=== PATIENT | female | born 1945 | race Caucasian/White ===

== ENCOUNTER 2022-05-16 11:32 | Day surgery (SDC) | payer MEDICARE, OTHER, SELFPAY ==
[2022-05-12 09:59] VITALS: BMI 32.9
[2022-05-16] VITALS (16 sets, daily range): BP systolic 88–145; BP diastolic 34–77; PULSE 65–97; RESP 14–20; TEMP 35.4–37.2; O2SAT 94–98; BMI 32.9
--- NOTE | 2022-05-16 10:08 | DI.RAD.S_ITS ---
PROCEDURE: XR PELVIS 1-2V INDICATIONS: CRYSTAL TECHNIQUE: 1 view of the lower pelvis acquired. COMPARISON: [facility] [place], [place], XR PELVIS WITH LATERAL HIP RIGHT, 05/11/2022, 9:45. FINDINGS: Bones: Patient is status post right hip arthroplasty, with hardware components in expected positions. The hip joint appears congruent. The visualized bony structures appear intact. Soft tissues: Overlying postoperative changes are noted. No suspicious soft tissue densities. IMPRESSION: Expected alignment status post placement of right hip arthroplasty. Dictated by: Denton PULLIAM Interpreted: Mee Michaud MD on 05/16/2022 at 16:37 Transcribed by: LAURI on 05/16/2022 at 16:37 Approved by: Mee Michaud M.D. on 06/01/2022 at 8:34
[2022-05-16 12:23] LABS: COVID19 -Nasal RAPID Negative (Negative)
[2022-05-16] MEDS: LACTATED RINGERS 1,000 ML 42 ML IV ×2 (12:41→16:28)
[2022-05-16] MEDS: VANCOMYCIN 1,000 MG/200 ML PIGGYBACK 200 MG IV (13:10)
[2022-05-16] MEDS: CELECOXIB 200 MG CAPSULE PO (13:23)
[2022-05-16] MEDS: ACETAMINOPHEN 325 MG TABLET 975 MG PO (13:39)
--- NOTE | 2022-05-16 13:40 | SUR.PREOP ---
Spoke with lelo Chaudhry to give tylenol
--- NOTE | 2022-05-16 13:48 | PM.PREOP ---
Pre-operative Note COVID-19 COVID-19 status: Negative Interval Note History & Physical reviewed/Exam performed by Physician: Yes Changes to H&P: No
--- NOTE | 2022-05-16 14:16 | PM.PREOP ---
Pre-operative Note COVID-19 COVID-19 status: Negative Interval Note History & Physical reviewed/Exam performed by Physician: Yes Changes to H&P: No
--- NOTE | 2022-05-16 14:17 | P.OP_ITS ---
Operative Date/Time/Diagnoses Date of procedure: 05/16/22 Time of procedure: 15:00 Pre-op diagnosis: Right hip AVN Post-op diagnosis: same Procedure & Clinicians Procedure: Right total hip arthroplasty posterior approach Same procedure as scheduled: Yes Indications: The patient has had progressively worsening right hip pain with radiographic changes consistent with arthritis. Non-operative management has failed and the patient has requested total hip replacement. The risks, benefits and alternatives to surgery were discussed with the patient prior to proceeding. Risks discussed included, but were not limited to, failure to relieve pain, leg length discrepancy, dislocation, stiffness, infection, nerve damage, deep venous thrombosis, pulmonary embolism, stroke, coma, heart attack, permanent paralysis and , as well as the potential need for eventual revision of the prosthetic. 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 The patient received pre-operative antibiotics and was taken to the operating room and placed on the operative table in the left lateral decubitus position after satisfactory anesthesia. A full time staff interpreter out was performed. The right leg was prepared from the ankle to the iliac crest with ChloroPrep in the usual fashion and draped through sterile drapes. The hip was approached through an approximately 20 cm incision centered over the greater trochanter and curving gently posteriorly as it went proximally. This was carried sharply to the fascia mark, which was divided and retracted with a self retaining retractor. The trochanteric bursa was excised with care being taken to avoid the sciatic nerve, which was identified and protected throughout the case. The short external rotators were incised and the capsulomuscular flap was raised and tagged for later repair. The hip was dislocated, and a femoral neck osteotomy performed approximately 15 mm above the lesser trochanter. Retractors were placed around the femur. The canal was opened with a box cuttin g osteotome, followed by a T handled reamer and a lateralizing reamer. The chili pepper broach was then used, followed by reaming with the T-handle and sequential broaching until there was good stability of the broach in the femur. Retractors were placed to expose the acetabulum. The labrum and central soft tissues were removed. There was severe synovitis. There was severe fragmentation of the femoral head. A fairly extensive synovectomy was performed. Reaming was performed initially going up in 2 mm increments, then 1 mm increments until good bite was obtained with an odd sized reamer. The cup 1 mm larger than the last reamer was then inserted using the appropriate anteversion guides. It was further stabilized with a single screw. A trial neutral liner was placed. The broach was placed in the canal. A trial head and neck were then placed and the hip relocated and checked for leg length and stability. An intraoperative film confirmed the component position and no evidence of fracture. The patient was stable in the position of sleep, of squatting, and could be put through a range of motion with 45 degrees internal rotation without dislocation. At 90 degrees flexion, internal rotation to 80 was possible before dislocation. This was felt to be satisfactory and the appropriate components were opened, and the trials were removed. The acetabular liner was impacted into position. The final stem was then impacted into the prepared femoral canal. A brief Betadine soak was performed while trialing with head options. The hip was meticulously irrigated with normal saline. Finally the femoral head was impacted onto the stem. The acetabulum was cleared of all material and the hip relocated one final time. The capsulomuscular flap was then repaired to the greater trochanter though an awl hole using the tag sutures. The short external rotators were repaired with a nonabsorbable suture. The fascia mark was closed with Vicryl. The subcutaneous layer was closed with barbed sutures and SteriStrips. A aramis dressing was applied and the patient was taken to recovery having tolerated the procedure well. Complications: none Post-operative Condition: stable Disposition: Acute Care Plan for aftercare: The patient will be maintained on a standard total hip replacement protocol with weight bearing as tolerated and posterior hip precautions. The patient will receive Aspirin and sequential compression devices for DVT prophylaxis. The patient will be discharged home when safe for the home environment.
[2022-05-16] MEDS: CLINDAMYCIN 900 MG/50 ML PIGGYBACK 50 MG IV (14:35)
[2022-05-16] MEDS: TRANEXAMIC ACID 1,000 MG VIAL 2000 MG INJ ×2 (14:42→15:10)
[2022-05-16] MEDS: BUPIVACAINE 0.25% (PF) 60 ML, EPINEPHrine 0.3 MG INJ (15:10)
[2022-05-16] MEDS: SODIUM CHLORIDE IRRIG SOLUTION 250 ML, POVIDONE-IODINE SPONGE STICKS 1 APPLIC IRR (15:11)
--- NOTE | 2022-05-16 15:15 | SUR.OPER ---
Lateral on padded OR bed. Gel axillary roll. Arms secured on padded armboard with pillow supporting top arm. Gel pad placed under left arm. Padded hip positioner braces x4 - anterior and posterior chest and pelvis. Additional gel pad used anterior pelvis. Gel pad under bottom leg from knee to foot and secured with tape over sheet.
--- NOTE | 2022-05-16 15:16 | SUR.OPER ---
Addendum entered by Lorena Funk R.N. 05/16/22 15:24: Catheterization with this RN as stated below performed at 1405 prior to entering OR. Addendum entered by Lorena Funk R.N. 05/16/22 15:19: Patients glasses brought to OR and placed in patient labelled glass bag and taken with patient to PACU. Original Note: Patient requested assistance in self catheterizing. patient states she does this every 10-15 minutes at home. Used 14F silicone catheter pre patient request. Urethra opening cleansed with sterile Providone-Iodine solution with sterile technique. Catheter inserted and 200mls of clear yellow urine removed. Patient states she has been performing self-catheterization for 10 years.
[2022-05-16] MEDS: BUPIVACAINE LIPOSOME 266 MG/20 ML VIAL INJ (16:00)
--- NOTE | 2022-05-16 17:00 | DI.RAD.S_ITS ---
PROCEDURE: XR HIP W PEL IF DONE RT 2V INDICATIONS: RIGHT TOTAL HIP POST OP TECHNIQUE: AP pelvis and lateral view of the right hip acquired. COMPARISON: [facility], [place], XR PELVIS 1-2V, 05/16/2022, 15:37. FINDINGS: Bones: Patient is status post right hip arthroplasty, with hardware components in expected positions. The hip joint appears congruent. The visualized bony structures appear intact. Note is made of moderate to severe left hip joint degeneration. Severe degenerative disc disease in lower lumbar spine. Soft tissues: Overlying postoperative changes are noted. No suspicious soft tissue densities. IMPRESSION: Expected postsurgical changes after total hip arthroplasty. Dictated by: Lencho Lomas M.D. on 05/17/2022 at 17:52 Approved by: Lencho Lomas M.D. on 05/17/2022 at 17:53
[2022-05-16] MEDS: OXYCODONE IR 5 MG TABLET PO ×2 (17:26→21:58)
--- NOTE | 2022-05-16 17:51 | SUR.PHASEI ---
1730: Pt A&Ox4, reports pain as tolerable, dressing c/d/i, CMS (+) distal to surgical site. Report given to receiving RN using SBAR with time allowed for questions. Pt transferred to room 208 with all personal belongings. Bedside handoff with dressing check and right foot movement with receiving RN. Son was in pt room during handoff.
[2022-05-16] MEDS: LACTATED RINGERS 1,000 ML 125 ML IV (18:15)
[2022-05-16] MEDS: BUSPIRONE 5 MG TABLET 15 MG PO (20:58)
[2022-05-16] MEDS: IBUPROFEN 400 MG TABLET PO (20:58)
[2022-05-16] MEDS: DOCUSATE 100 MG CAPSULE PO (20:59)
[2022-05-16] MEDS: ASPIRIN EC 81 MG TABLET PO (20:59)
[2022-05-16] MEDS: PRAMIPEXOLE 1 MG TABLET PO (20:59)
[2022-05-17] VITALS (8 sets, daily range): BP systolic 106–151; BP diastolic 45–66; PULSE 65–97; RESP 17–18; TEMP 35.9–37.1; O2SAT 94–99
[2022-05-17] MEDS: IBUPROFEN 400 MG TABLET PO ×2 (01:16→05:18)
[2022-05-17] MEDS: VANCOMYCIN 1,000 MG/200 ML PIGGYBACK 200 MG IV (01:16)
--- NOTE | 2022-05-17 04:55 | PC.NURSE ---
pt complained of muscle spasms, called gas distribution supervisor Dr Kothari. Received telephone order for 5mg Valium PO, q 6 hours. Will continue to monitor.
[2022-05-17] MEDS: OXYCODONE IR 10 MG TABLET PO (05:17)
[2022-05-17] MEDS: LEVOTHYROXINE 100 MCG TABLET PO (05:45)
--- NOTE | 2022-05-17 06:28 | PC.NURSE ---
Received order for Valium from Dr Kothari, [facility] will not verify because of hx of liver ds. [facility] will inform day pharmacy.
[2022-05-17 06:43] LABS: Hematocrit 32.4 % (36-46); Hemoglobin 10.8 g/dL (12.0-16.0)
[2022-05-17] MEDS: DOCUSATE 100 MG CAPSULE PO ×3 (08:05→20:12)
[2022-05-17] MEDS: ASPIRIN EC 81 MG TABLET PO (08:05)
[2022-05-17] MEDS: PRAMIPEXOLE 1 MG TABLET PO ×2 (08:05→20:12)
[2022-05-17] MEDS: OXYCODONE IR 5 MG TABLET PO ×3 (08:05→18:06)
[2022-05-17] MEDS: BUSPIRONE 5 MG TABLET 15 MG PO ×2 (08:05→20:13)
[2022-05-17] MEDS: PRAVASTATIN 20 MG TABLET 40 MG PO (08:12)
[2022-05-17] MEDS: FLUTICASONE 120 SPRAY/16 GM SPRAY.SUSP NASAL (08:12)
[2022-05-17] MEDS: PANTOPRAZOLE DR 40 MG TABLET PO (08:13)
[2022-05-17] MEDS: atenoloL 50 MG TABLET 100 MG PO (08:13)
[2022-05-17] MEDS: polyethylene glycoL 3350 17 GM POWD.PACK PO (08:59)
--- NOTE | 2022-05-17 09:19 | CM.DANOTE ---
Addendum entered by Aliza Guerrero R.N. 05/17/22 13:26: [facility] is listed on calendar for this week. Called Juliane at [facility] and confirmed that they do go to [place], and can have someone possibly out there by Sunday. Emailed change group for appropriate address, as the face sheet had incorrect number on address. Gave patient a brochure for [facility], son, Lester, in the room. Faxed [facility] face sheet, face to face, orders, DC Summary, P.T. notes, and H&P to [facility]. Patient will be working with P.T. again today before going home, and son will have caregiver training. Original Note: DCP: Case received, EMR reviewed and worked with patient. Introduced self and role. Was able to obtain information regarding patient's baseline activity status as well as current living situation prior to her surgery. DCP assessment completed with information currently available. Patient is a 76 year old female who admitted yesterday morning to the care of the hospitalist team. PCP: Provider in [place]. Payer: confirmed: Medicare/[employer] Preferred. Patient came to the hospital via private vehicle for a surgical procedure. Patient had right total hip arthroplasty. Patient has history of chronic right hip pain secondary to arthritis. Met with patient in her room. She is alert and oriented, pleasant. She resides in [place], [place] [facility]. She lives alone, but has a son named Lester, who lives about 11 miles away. Her son has been fixing up her home to be handicapped friendly, has a ramp where the stairs are to get into the home. She has an electric scooter, and four wheel, and FWW walker available. She is not currently driving. She is interested in home health, she has no preferences on agencies, just one that serves her area. P: DCP to continue to follow. Will check with the home health agencies to see which ones serve her area. Aliza Guerrero RN/Dispatcher Motor Vehicle Discharge Planning/Care Management CM Discharge Assessment Start: 05/17/22 09:16 Freq: Status: Active Protocol: Document 05/17/22 09:16 (Rec: 05/17/22 09:19 [id number]) Discharge Planning Assessment Assigned Frame Stylist Aliza Guerrero RN/Dispatcher Motor Vehicle Advance Directives? No History Provided By Patient,Medical Record Prior Living Arrangements House Household Members none Type of transporation used prior to Relies on Others admit Independent with ADL's Yes Is patient alert and oriented? Yes Needs Assistance With Home Chores / Shopping Caregiver for Another No DME Already Rented / Owned FWW / Walker,Other Comment Has scooter and four wheel walker Patient/Family Preference Home with Home Health Comment Lives alone, son is 11 miles away Discharge Plan Home with Home Health Transportation Arrangement Son Referrals Initiated Home Health Additional Comment Will see which agency serves her area If patient plan is home with home health Yes: There are presigned forms : Has signed face to face form been by ortho completed? Medicare Choice List Provided Yes Whiteboard Updated in Patient Room with Yes name and ext. # of Frame Stylist Review Status In Process Next Review Type Continued Stay Review Pre-Anesthesia Assessment Start: 05/12/22 09:59 Freq: Status: Active Protocol: Document 05/12/22 09:59 [facility] (Rec: 05/12/22 10:54 [facility] [id number]) Pre-Anesthesia Assessment PAC Comment Pt self-caths - wants to have a curry catheter Preferred Name Rachel Patient Information Reviewed Via Phone Assessment Assessment Completed With Patient H&P Completed Within 30 Days Yes Comment Pt states not told to get labs /ECG per surgeon, COVID - Rapid on admit Primary Care Provider Jonas Seen Specialist in Last 12 Months Yes Specialist Seen Orthopedist,Urologist Primary Language Greek Drug Safety Specialist Required No Height 5 ft 2 in Weight 180 lb Body Mass Index (BMI) 32.9 Hearing Ability Normal Visual Assist Glasses Dentition Type Teeth, Natural Present Barriers to Learning None Hx Anesthesia Reactions No: DAE - no CPAP Hx Family Anesthesia Reaction No Hx Malignant Hyperthermia No Hx Blood Transfusions Yes: s/p hysterectomy Hx Blood Transfusion Reaction No Anesthesia Review Requested No alcohol intake current alcohol intake frequency a few times a week Smoking Status Never smoker Substance Use Type does not use Musculoskeletal Symptoms Abnormal Gait,Difficulty Walking,Joint Pain History of Falling (Recent or History of Yes ) Patient is completely paralyzed or No completely immobile Prosthesis or Orthotic Device Front Wheel Walker Mental Status Oriented to own ability Is patient on oxygen? No Does patient have SHER/SOB Yes: Related to Asthma Hx Sleep Apnea Yes CPAP/BIPAP use prescribed not used Currently Taking a Beta Rosalba Yes: Atenolol Hx Chest Pain No Hx SOB Yes: Related to Asthma Anti-Coagulant Therapy No Has a Benzene Still Utility Operator No Cardiac Testing No Hx Pacemaker/ICD No Pacemaker Rep Required? No Diet Type At Home Regular dysphagia Yes: Wth too big of a bite Gastrointestinal Symptoms Bloating,Constipation, Excessive Flatus,Reflux Urinary Catheter Present No Hx Urinary Self Catheterization Yes: Pt would like a curry with surgery Diabetes No: Pre-diabetes Patient No Lactating No Presence of External or Internal Medical Yes: Bilat knees/shoulders, Devices lumbar Have you had any close contact with No someone diagnosed with COVID-19? Received a COVID vaccine? No Marital Status / Lives With none Prior Living Arrangements House Number of Floors (Floors) One Floor Support System Child/Children Does the Patient Have Assistance After Yes: Son will stay with Surgery patient at [place] Patient Discharge Plan Description Return Home Comment Pt not advised on length of stay per surgeon Feels Safe in Current Environment Yes Been Physically Hurt or Threatened By a No Person in Current Environment Do you have thoughts of harming yourself None or others? Are you currently considering suicide? No Do you have a plan to hurt yourself or No Plan others? Do You Have Any Spiritual Beliefs That No May Affect Your HC Choices? Do You Have Any Cultural Practices That No May Affect Your HC Choices? Who Can We Speak to About Patient's Care Family, friends Identifying Code for Release of Patient Declines to issue Information Health Care Proxy/Next of Kin Lester (son) Health Care Proxy Phone Number Pt to update dos Emergency Contact Name Ezio (son) Emergency Contact Phone Number Pt to update dos Advance Directives? No Power of Manager [employer] No PAC Instructions Do not shave/clip surgical site,Durable medical equipment ,Medications to take/avoid, Nasal antibiotic,No ETOH/ petroleum product on skin DOS, NPO,Pre-surgical wash,Sturdy shoes/comfortable clothes,Do not bring valuables and remove jewelry
[2022-05-17] MEDS: hydrOXYzine pamoate 25 MG CAPSULE PO ×2 (09:35→20:10)
[2022-05-17] MEDS: APIXABAN 5 MG TABLET PO ×2 (09:35→20:12)
--- NOTE | 2022-05-17 09:37 | PT.IIE ---
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) Surgery Performed Operation Date: 05/16/22 13:45 Actual Procedures p Total Hip Arthroplasty(Right) - Marina Tinoco MD Surgical History (Last Reviewed 05/17/22 @ 11:36 by Brook Gold PA-C) History of arthroplasty of left knee History of arthroplasty of left shoulder History of arthroplasty of right knee History of arthroplasty of right shoulder History of hysterectomy History of lumbar fusion Hx of bilateral cataract extraction Hx of bladder repair surgery Hx of laminectomy Hx of partial thyroidectomy Hx of sinus surgery Medical History (Last Reviewed 05/17/22 @ 11:36 by Brook Gold PA-C) Anesthesia Asthma Dry skin DVT (deep venous thrombosis) (~2017) Easy bruisability Fatty liver Fibromyalgia GERD (gastroesophageal reflux disease) Graves' disease HLD (hyperlipidemia) HTN (hypertension) Idiopathic aseptic necrosis of right femur DAE (obstructive sleep apnea) Osteoarthritis Pre-diabetes RLS (restless legs syndrome) Self-catheterizes urinary bladder Small bowel obstruction (~2017) Physical Therapy Inpatient Evaluation/Re-Eval M1 PT/OT-IP Prior Functional Status Start: 05/17/22 12:34 Freq: NEEDED Status: Active Protocol: Document 05/17/22 09:37 AB (Rec: 05/17/22 12:49 AB [id number]) Medical Review Prior Functional Status Medical History Reviewed Yes Communication able to make needs known; with confusion Mobility and Gait pt stated that she is modified independent with all mobilities and ambulation using her UP walker Social History Household Members none Living Arrangements House Number of Floors (Floors) One Floor Number of Stairs To Enter/Railing? ramp to enter Home Environment High Toilet,Walk in Shower, Ramp Home Equipment Front Wheel Walker,Four Wheel Walker,Shower Seat with Backrest,Hand Held Shower,Grab Bars In Shower Additional Social History Comment stated that her son may stay with her to assist if needed pt has an UP walker pt has R side bed cane M2 PT-IP Current Condition Start: 05/17/22 12:34 Freq: NEEDED Status: Active Protocol: Document 05/17/22 09:37 AB (Rec: 05/17/22 12:49 AB [id number]) Physical Therapy Current Condition Current Condition Evaluation Date 05/17/22 Treatment Diagnosis s/p R CRYSTAL posterior approach; difficulty in walking Onset Date 05/16/22 M3 PT-IP Subjective Start: 05/17/22 12:34 Freq: NEEDED Status: Active Protocol: Document 05/17/22 09:37 AB (Rec: 05/17/22 12:49 AB [id number]) Subjective Physical Therapy Visit Type Type Initial Evaluation Visit Start Time 09:37 Visit Stop Time 10:45 Total Visit Minutes 68 Number of SENIOR QC TECHNICIAN Visits 0 Physical Therapy Visit Comments Patient Comments agreed to do PT Therapy Pain Assessment Pain When Pain Assessed At Rest Pain Present Pain Present Pain Reported Location r hip pain Intensity 4 Scale Used Numeric (0 - 10) Pain Management Techniques Apply Cold,Distraction, Modification of Treatment,Re- positioning,Timing of Activity with Medications M4 PT-IP Mobility and Gait Start: 05/17/22 12:34 Freq: NEEDED Status: Active Protocol: Document 05/17/22 09:37 AB (Rec: 05/17/22 12:49 AB [id number]) PT-Bed Mobility Assessment Supine to Sit Supine to Sit Maximum Assistance,Bedrails PT-Transfer Assessment Sit to and From Stand Sit to and from Stand Moderate Assistance,Maximum Assistance Equipment Transfer Assistive Device Gait Belt,Front Wheeled Walker Orthotic/Prosthetic Devices or Brace: No Transfers Transfer Destination Chair Transfer Technique ambulated Transfer Ability Level of Assist Moderate Assistance,Maximum Assistance,1 Person Assistance ,Use of Upper Extremities Comments Mobility Comments educated pt on posterior hip precautions. pt requires constant cues for precautions and safety. completed supine to sit max A and max cues for techniques. able to sit on EOB CGA. completed sit to stand mod to max A and cues for hip precautions. ambulated in room ~ 50 ft using FWW min to mod A and cues especially with turns. pt agreed to sit on chair. positioned on chair. call light and table placed within reach. Gait Assessment Gait Gait Assistance Required: Minimum Assistance,Moderate Assistance Distance (Feet) 50 Able to Maintain Weight Bearing Status Yes During Gait Assistive Devices Assistive Device Gait Belt,Front Wheeled Walker Orthotic/Prosthetic Devices or Brace: No Gait Deviations General Gait Pattern Antalgic,Decreased Stride Length,Decreased Feet Clearance Factors Limiting Gait Function Factors Limiting Gait Function Decreased Activity Tolerance, Decreased Strength,Difficulty Following Directions,Limited Range of Motion,Pain,Poor Balance,Poor Safety Awareness PT-Balance Assessment Sitting Balance and Reactions Static Sitting Balance Ability Good Dynamic Sitting Balance Ability Fair Standing Balance and Reactions Static Standing Balance Ability Fair Dynamic Standing Balance Ability Poor Device Used FWW M5 PT-IP Objective Assessments Start: 05/17/22 12:34 Freq: NEEDED Status: Active Protocol: Document 05/17/22 09:37 AB (Rec: 05/17/22 12:49 AB [id number]) Orientation Orientation/Cognition Level of Alertness Alert Orientation Name,Place,Situation Language Function Ability No Deficits Noted Safety Awareness Decreased Safety Awareness Memory Description Short Term Impaired,Enzyme Chemist Impaired Gross Range of Motion Lower Extremity ROM Assessment Within Functional Limits Strength Lower Extremity Strength Assessment Right Impaired Hip 3+/5 Knee 4-/5 Coordination Assessment Gross Coordination Gross Coordination WNL Sensation Assessment Sensation Gross Sensation WNL Muscle Tone Muscle Tone WNL Yes M6 PT-IP Treatment Start: 05/17/22 12:34 Freq: NEEDED Status: Active Protocol: Document 05/17/22 09:37 AB (Rec: 05/17/22 12:49 AB [id number]) Physical Therapy Treatment Education Education Provided Precautions,Weight Bearing Status,Post-Op Packet,Safety M7 PT-IP Assessment and Plan Start: 05/17/22 12:34 Freq: NEEDED Status: Active Protocol: Document 05/17/22 09:37 AB (Rec: 05/17/22 12:49 AB [id number]) PT Summary Assessment and Plan Potential Rehabilitation Potential Fair Status of Condition at Evaluation Evolving Summary Impairments Pain,ROM,Strength,Balance, Coordination,Sensation,Tone, Cognition,Bed Mobility, Transfers,Gait,Activity Tolerance Assessment Summary pt requiring max A with bed mobility, mod to max for transfers using FWW. will conduct caregiver training this afternoon with pt's son and will assess safety to go home. pt at this time will need 24/7 assist at home for safety and will benefit from HHPT. will continue to assess progress. Goals Bed Mobility Goal Standby Assistance Transfer Goal Standby Assistance,Front Wheeled Walker Gait Goal Standby Assistance,Front Wheel Walker Gait Distance 200 Days to Meet Goals 10 Frequency of Treatment Frequency Of Treatment Twice a Day Treatment Plan Physical Therapy Treatment Plan Bed Mobility Training,Transfer Training,Gait Training, Therapeutic Exercise,Balance Retraining,Post Op Education, Discharge Planning,Hot or Cold Pack,Neuromuscular Re-ed, Coordination Retraining,Manual Therapy Precautions Posterior Hip Precautions No Hip Flexion > 90 degrees,No Hip Internal Rotation,No Hip Adduction Weight Bearing Status Weight Bearing Status Weight Bear as Tolerated Allowed Weight Bearing Amount (enter % RLE WBAT or #) (%) Recommendations To Nursing Amount of Assist Needed 1 Person Assist Discharge Recommendations PT Discharge Recommendations Home with 04/06 Assist Available,Home Health Transportation Needs at Discharge Private Vehicle,Wheelchair/ Cabulance
--- NOTE | 2022-05-17 11:34 | PM.DS.1 ---
History of Present Illness History of Present Illness Date Patient Seen: 05/17/22 Time Patient Seen: 11:34 Chief complaint: OPB Narrative: Patient's main complaint this morning is right-sided muscle spasms. Her pain is relatively well managed. She is on oxycodone 5 mg and ibuprofen. She does have a history of a DVT status post her total knee arthroplasty. She self catheterizes at home. She notes she has also not had a bowel movement for over week. She has a history of constipation she notes that do go lacks 2 tablets usually does the trick. Overall she is feeling better, she worked with Physical therapy this morning and her son is coming for her afternoon session. If she does well with PT, she would like to go home today. Discharge Providers Provider Discharge Date: 05/17/22 Consults: 05/16/22 10:08 Consult to Anesthesiology Routine Comment: Consulting Provider: Anesthesiologist Reason for consultation: Regional block for post operative pain control 05/16/22 12:40 Consult to Respiratory Therapy Evaluate & Treat Comment: Physician Instructions: Evaluate and treat 05/16/22 17:52 Consult to Discharge Planning Routine Comment: Consult to Physical Therapy Evaluate & Treat Comment: Physician Instructions: post op CRYSTAL protocol Consult to Respiratory Therapy Evaluate & Treat Comment: Physician Instructions: Evaluate and treat Discharge provider: Brook Gold PA-C Summary Hospital Course Discharge Diagnosis: -right hip AVN -history of a DVT status post prior TKA Hospital Course: Operative Date/Time/Diagnoses Date of procedure: 05/16/22 Time of procedure: 15:00 Procedure & Clinicians Procedure: Right total hip arthroplasty posterior approach Same procedure as scheduled: Yes Indications: The patient has had progressively worsening right hip pain with radiographic changes consistent with arthritis. Non-operative management has failed and the patient has requested total hip replacement. The risks, benefits and alternatives to surgery were discussed with the patient prior to proceeding. Risks discussed included, but were not limited to, failure to relieve pain, leg length discrepancy, dislocation, stiffness, infection, nerve damage, deep venous thrombosis, pulmonary embolism, stroke, coma, heart attack, permanent paralysis and , as well as the potential need for eventual revision of the prosthetic. Surgeon: Marina Tinoco Outside [employer] Sales: Robbie Hammonds Anesthesia Type: General Operative Notes Findings: Severe right hip avascular necrosis with severe destruction of the femoral head, soft bone Closure Type: primary Specimen(s): none sent Prosthetic devices, grafts, tissues, transplants, or devices: Tinoco and nephew size 10 synergy, 48 mm R3 cup, 32 x 48 neutral poly liner, 32 by -3 cobalt head,one 6.5 mm screw Estimated Blood Loss (mL): 250 Blood products transfused: none Status at Discharge Cognitive/behavioral status at discharge: at baseline, oriented Functional status at discharge: uses cane/walker Overall status at discharge: patient is progressing back to baseline Exam Vital Signs (past 8 hours): - 05/17/22 04:18 05/17/22 07:45 05/17/22 08:59 Temperature 97.5 F L 96.6 F L Pulse Rate 82 79 65 Respiratory Rate 17 17 18 Blood Pressure 138/66 138/62 Pulse Oximetry 98 95 97 Oxygen Delivery Method Nasal Cannula Oxygen Flow Rate 3 0 3 Fraction of Inspired Oxygen 32 05/17/22 07:00 05/17/22 07:00 Temperature Pulse Rate Respiratory Rate Blood Pressure Pulse Oximetry Oxygen Delivery Method Nasal Cannula Nasal Cannula Oxygen Flow Rate Fraction of Inspired Oxygen Fraction of Inspired Oxygen 32 Oxygen Delivery Method Nasal Cannula Oxygen Flow Rate 3 Narrative Exam Narrative: Pleasant 76-year-old female, resting comfortably in a chair, no acute distress. Dressing is clean, dry, intact. Bilateral lower extremity: Motor functions are grossly intact, sensation is grossly intact to light touch, calves are soft and nontender to palpation. Objective Labs Result Diagrams: 05/17/22 06:30 Labs: Laboratory Results - last 24 hr 05/16/22 05/17/22 11:50 06:30 Hgb 10.8 L Hct 32.4 L SARS-CoV-2 (PCR) Negative [facility] Medical History Anesthesia Asthma Dry skin DVT (deep venous thrombosis) (~2017) Easy bruisability Fatty liver Fibromyalgia GERD (gastroesophageal reflux disease) Graves' disease HLD (hyperlipidemia) HTN (hypertension) Idiopathic aseptic necrosis of right femur DAE (obstructive sleep apnea) Osteoarthritis Pre-diabetes RLS (restless legs syndrome) Self-catheterizes urinary bladder Small bowel obstruction (~2017) Surgical History History of arthroplasty of left knee History of arthroplasty of left shoulder History of arthroplasty of right knee History of arthroplasty of right shoulder History of hysterectomy History of lumbar fusion Hx of bilateral cataract extraction Hx of bladder repair surgery Hx of laminectomy Hx of partial thyroidectomy Hx of sinus surgery Social History household members: none Smoking Status: Never smoker alcohol intake: current Discharge Assessment & Plan Assessment and Plan Assessment: -stable status post right total hip arthroplasty, posterior approach -history of DVT -chronic constipation, no bowel movement x1 week Patient self catheterizes at home Plan of Treatment: -mobilize with PT. weight-bearing as tolerated with front wheel walker. Maintain posterior hip precautions x6 weeks -DVT prophylaxis: Stop aspirin b.i.d. and changed to Eliquis 5 mg b.i.d. due it to her history of DVT status post total knee -keep Booker catheter in until discharge, then the patient will self catheterize at home -continue multimodal pain management. Added Vistaril for muscle spasm/pain. We will discontinue ibuprofen and add meloxicam 7.5 mg with Pepcid AC while using Eliquis. -chronic constipation: increased MiraLax to t.i.d., will add ducolax as well. Patient will need to have a BM before d/c, since it has been a week since last BM. Also encouraged rectal suppository -dc home with home health -d/c home if she is cleared by physical therapy and has a bowel movement before d/c Discharge Plan Discharge Plan Patient Disposition: Home Discharge orders & Medications Discharge Orders: Discharge (Order); Ordered 05/17/22 Ordered By: Brook Gold Prescriptions: New Eliquis 5 mg Tablet 5 mg PO BID 42 Days Qty: 84 0RF Rx Instructions: Prevent blood clots famotidine [Pepcid AC] 20 mg Tablet 20 mg PO BEDTIME PRN (Reason: Protect stomach while using meloxicam) Qty: 14 0RF docusate sodium 100 mg Capsule 100 mg PO BID PRN (Reason: Constipation from narcotic pain med) Qty: 60 0RF hydroxyzine pamoate 25 mg Capsule 25 mg PO Q4HR PRN (Reason: muscle spasms/pain/nausea) Qty: 60 0RF meloxicam 7.5 mg Tablet 7.5 mg PO .With breakfast PRN (Reason: Pain/inflammation) 14 Days Qty: 14 0RF oxycodone 5 mg Tablet See Rx Instructions .ROUTE .COMPLEX PRN (Reason: Pain, Moderate (4-6)) Qty: 42 0RF Rx Instructions: Take 1-2 tablets by mouth every 4 hours as needed for moderate to severe postop pain polyethylene glycol 3350 17 gram Powder In Packet 17 g PO TID PRN (Reason: Constipation) Qty: 30 0RF Continued pramipexole 1 mg Tablet 1 mg PO BID pravastatin 40 mg Tablet 40 mg PO DAILY atenolol 100 mg Tablet 100 mg PO QAM levothyroxine 100 mcg Tablet 100 mcg PO DAILY pantoprazole 40 mg Tablet,Delayed Release (Dr/Ec) 40 mg PO DAILY docusate sodium [Doculax] 100 mg Capsule 100 mg PO BID albuterol sulfate 90 mcg/actuation Hfa Aerosol Inhaler 2 puff INHALATION Q4-6H PRN (Reason: Shortness Of Breath) fluticasone propionate 50 mcg/actuation Delta,Suspension 2 spray INTRANASAL DAILY Rx Instructions: administer into each nostril buspirone 15 mg Tablet 15 mg PO BID Myrbetriq 50 mg Tablet Extended Release 24 Hr 50 mg PO DAILY Label Comments: doesn't take consistently due to cost of drug, and pt doesn't think it works chlorthalidone 15 mg Tablet 15 mg PO BID Follow up/Referrals: Marina Tinoco MD [Physician] - (10-14 days for postoperative visit) Diet/Activity/Treatments Diet: Diet as Tolerated Other treatments: Dressing/Wound care: -Keep Molina dressing in place until postoperative follow-up office visit. The Molina battery/pump should last for 7 days. Once that stops, please cut off hose at base of dressing and cover with a bandaid/part of a dressing from Molina package. Monitor can be thrown away and recycle the batteries. Leave the remaining dressing in place. -Okay to shower. Keep wound out of direct water stream. No soaking or submerging until all the scabs fall off (approximately 6 weeks). -No lotions, ointments, or scar creams directly to the incision until the wound is healed (4-6 weeks), -Please call the office if dressing becomes wet, soiled, or saturated. Activities: -Maintain posterior hip precautions x6 weeks. -Weight-bearing as tolerated. Use front wheeled walker, and progress to cane when safe. -Continue with home exercises as directed by your physical therapist. -Elevate ?toes above the nose if you have significant swelling in your lower leg. (A wedge pillow is easiest.) -Ice your incision as needed for pain/inflammation/swelling. Protect your skin with a folded pillowcase. Follow-up: -Follow-up with your surgeon or PA in the office in 10-14 days after surgery. -Follow-up with your surgeon 6 weeks postoperatively. Call the office if you have chest pain, shortness of breath, significant swelling that will not resolve with elevating, fever over 101?, significantly worsening pain, or are concerned you might need to go to the Emergency Room. [facility] Orthopedics: [phone] Skin/Wound/Dressing Care Report to your healthcare provider any signs of infection, such as:: chills, fever, night sweats, unusual drainage and unusual redness Visit Report/Discharge Packet Instructions: DI for Hip Replacement Stand Alone Forms: Surgery Discharge Discharge Data Attending Provider: Marina Tinoco
[2022-05-17] MEDS: BISACODYL 10 MG SUPP PR (12:56)
--- NOTE | 2022-05-17 14:00 | PT.IPTN ---
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) Surgery Performed Operation Date: 05/16/22 13:45 Actual Procedures p Total Hip Arthroplasty(Right) - Marina Tinoco MD Physical Therapy Treatment Note M2 PT-IP Current Condition Start: 05/17/22 12:34 Freq: NEEDED Status: Active Protocol: Document 05/17/22 09:37 AB (Rec: 05/17/22 12:49 AB [email or web address]) Physical Therapy Current Condition Current Condition Evaluation Date 05/17/22 Treatment Diagnosis s/p R CRYSTAL posterior approach; difficulty in walking Onset Date 05/16/22 M3 PT-IP Subjective Start: 05/17/22 12:34 Freq: NEEDED Status: Active Protocol: Document 05/17/22 14:00 AB (Rec: 05/17/22 16:24 AB [email or web address]) Subjective Physical Therapy Visit Type Type Treatment Note Visit Start Time 14:00 Visit Stop Time 14:45 Total Visit Minutes 45 Number of SCADA OPERATOR Visits 0 Physical Therapy Visit Comments Patient Comments agreeable to do PT Therapy Pain Assessment Pain When Pain Assessed At Rest Pain Present Pain Present Pain Reported Location r hip pain Intensity 4 Scale Used Numeric (0 - 10) M4 PT-IP Mobility and Gait Start: 05/17/22 12:34 Freq: NEEDED Status: Active Protocol: Document 05/17/22 14:00 AB (Rec: 05/17/22 16:24 AB [email or web address]) PT-Bed Mobility Assessment Supine to Sit Supine to Sit Maximum Assistance,1 Person Assistance Sit to Supine Sit to Supine Standby Assistance,1 Person Assistance PT-Transfer Assessment Sit to and From Stand Sit to and from Stand Moderate Assistance,1 Person Assistance,Use of Upper Extremities Equipment Transfer Assistive Device Gait Belt,Front Wheeled Walker Orthotic/Prosthetic Devices or Brace: No Transfers Transfer Destination Bed Transfer Technique ambulated Transfer Ability Level of Assist Minimal Assistance,1 Person Assistance,Use of Upper Extremities Comments Mobility Comments pt sitting on chair. son in room with pt. reviewed hip precautions with pt and educated son on hip precautions. educated son on how to use safety belt and how to assist pt. son was able to put safety belt on pt assisted pt with sit to stand. repeated sit to stand x 2 reps and initially with PT providing cues but on 2nd attempt with son able to cue pt. son assisted pt with ambulation to the EOB ~ 12 ft using FWW min A and cues. pt sat on EOB. PT cued for hip precautions and son was not able to cue prior. educated pt and son regarding hip precautions and understood. pt completed sit to supine SBA and supine to sit max A with son assisting. pt requested to go back to bed. SBA for sit to supine. positioned pt in bed. call light and table placed within reach. caregiver training scheduled again for tomorrow at 9 am. Gait Assessment Gait Gait Assistance Required: Minimum Assistance,1 Person Assist Distance (Feet) 12 Able to Maintain Weight Bearing Status Yes During Gait Assistive Devices Assistive Device Gait Belt,Front Wheeled Walker Orthotic/Prosthetic Devices or Brace: No Gait Deviations General Gait Pattern Antalgic,Decreased Stride Length,Decreased Feet Clearance Factors Limiting Gait Function Factors Limiting Gait Function Decreased Activity Tolerance, Decreased Strength,Difficulty Following Directions,Limited Range of Motion,Pain,Poor Balance,Poor Safety Awareness M5 PT-IP Objective Assessments Start: 05/17/22 12:34 Freq: NEEDED Status: Active Protocol: Document 05/17/22 09:37 AB (Rec: 05/17/22 12:49 AB [email or web address]) Orientation Orientation/Cognition Level of Alertness Alert Orientation Name,Place,Situation Language Function Ability No Deficits Noted Safety Awareness Decreased Safety Awareness Memory Description Short Term Impaired,Assisted Impaired Gross Range of Motion Lower Extremity ROM Assessment Within Functional Limits Strength Lower Extremity Strength Assessment Right Impaired Hip 3+/5 Knee 4-/5 Coordination Assessment Gross Coordination Gross Coordination WNL Sensation Assessment Sensation Gross Sensation WNL Muscle Tone Muscle Tone WNL Yes M6 PT-IP Treatment Start: 05/17/22 12:34 Freq: NEEDED Status: Active Protocol: Document 05/17/22 14:00 AB (Rec: 05/17/22 16:24 AB [email or web address]) Physical Therapy Treatment Education Education Provided Safety M7 PT-IP Assessment and Plan Start: 05/17/22 12:34 Freq: NEEDED Status: Active Protocol: Document 05/17/22 14:00 AB (Rec: 05/17/22 16:24 AB [email or web address]) PT Summary Assessment and Plan Potential Rehabilitation Potential Fair Summary Impairments Pain,ROM,Strength,Balance, Coordination,Sensation,Tone, Cognition,Bed Mobility, Transfers,Gait,Activity Tolerance Assessment Summary caregiver training conducted and further training needed and set up for tomorrow at 9 am. Son stated that he can stay and assist pt at home. will continue to assess progress. Goals Bed Mobility Goal Standby Assistance Transfer Goal Standby Assistance,Front Wheeled Walker Gait Goal Standby Assistance,Front Wheel Walker Gait Distance 200 Days to Meet Goals 10 Frequency of Treatment Frequency Of Treatment Twice a Day Treatment Plan Physical Therapy Treatment Plan Bed Mobility Training,Transfer Training,Gait Training, Therapeutic Exercise,Balance Retraining,Post Op Education, Discharge Planning,Hot or Cold Pack,Neuromuscular Re-ed, Coordination Retraining,Manual Therapy Precautions Posterior Hip Precautions No Hip Flexion > 90 degrees,No Hip Internal Rotation,No Hip Adduction Weight Bearing Status Weight Bearing Status Weight Bear as Tolerated Allowed Weight Bearing Amount (enter % RLE WBAT or #) (%) Recommendations To Nursing Amount of Assist Needed 1 Person Assist Discharge Recommendations PT Discharge Recommendations Home with 04/06 Assist Available,Home Health Transportation Needs at Discharge Private Vehicle,Wheelchair/ Cabulance
[2022-05-17] MEDS: FLEETS ENEMA 1 EACH PR (14:18)
--- NOTE | 2022-05-17 18:34 | PC.NURSE ---
Pt is AxOx3-4, calm and cooperative. VSS, c/o pain on R knee and requested PRN Oxy 5mg x3 with good effect. Pt also c/o constipation and recieved PRN Miralax, Suppository and Fleet Enema. Pt was taken to commode/ bathroom many times. Pt has very small BM x1 and rest of them are mucus. Pt is eating well. pt needs 1 person assistance with FWW. Continue curry catheter and draining yellow color urine. Pt worked with PT and pt did not clear pt today so pt may go home tomorrow after PT with HH. Son will come and pick her up. No other changes. Continue monitor.
[2022-05-17] MEDS: FAMOTIDINE 20 MG TABLET PO (20:11)
[2022-05-17] MEDS: SODIUM CHLORIDE 0.9% FLUSH 10 ML IV (20:13)
[2022-05-17] MEDS: HYDROMORPHONE 2 MG TABLET PO (22:33)
--- NOTE | 2022-05-17 22:38 | PC.NURSE ---
Pt. reported last pain medication I took did not last that long & it only helped for a little bit. Medicated with 2 mg. of Dilaudid PO rated pain level really high @ 10/10. Rechecked her B/P 155/56 & HR 80, will monitor.
[2022-05-18] VITALS (8 sets, daily range): BP systolic 117–140; BP diastolic 45–54; PULSE 72–83; RESP 18; TEMP 36.2–37.3; O2SAT 92–95
[2022-05-18] MEDS: diazePAM 5 MG TABLET PO ×3 (01:09→21:06)
--- NOTE | 2022-05-18 01:15 | PC.NURSE ---
Denies VU, nausea,no hallucinations & tremors noted. States I just can't sleep & I'm very restless, offered some Valium & she readily accepted. 5 mg. PO administered. Also reported last pain medication helped. Will cont. POC & monitor.
[2022-05-18] MEDS: HYDROMORPHONE 2 MG TABLET PO (03:51)
--- NOTE | 2022-05-18 04:07 | PC.NURSE ---
Patient reported good choice for changing my pain medication pain level @ 5 when I'm not moving, but it goes up to 8/10 when I moved. Medicated with 2 mg. of PO Dilaudid. Will cont. POC & monitor.
[2022-05-18] MEDS: LEVOTHYROXINE 100 MCG TABLET PO (05:22)
--- NOTE | 2022-05-18 05:40 | PC.NURSE ---
Up to the BSC earlier, having mucousy stool with streak of blood. C/O rt. lower quad abdominal pain. Reports getting anxious with the pain in the right side of my abdomen. Denies any nausea, no other signs of ETOH withdrawal except she's been anxious. Will report to MD or PA when they do their visit this morning.
--- NOTE | 2022-05-18 06:54 | PC.NURSE ---
Checked patient to re-assessed her pain level. She was sleeping, but roused easily & denies any needs for any pain medication. Will report to day RN to follow up with her RLQ abdominal pain. Will cont. PO & monitor.
--- NOTE | 2022-05-18 07:04 | PC.NURSE ---
DOMINGA Connolly notified with C/O RLQ abdominal pain & mucus stool with scant bleeding. Will cont. POC & monitor.
[2022-05-18] MEDS: PRAVASTATIN 20 MG TABLET 40 MG PO (08:43)
[2022-05-18] MEDS: PANTOPRAZOLE DR 40 MG TABLET PO (08:43)
[2022-05-18] MEDS: BUSPIRONE 5 MG TABLET 15 MG PO ×2 (08:43→20:05)
[2022-05-18] MEDS: APIXABAN 5 MG TABLET PO ×2 (08:43→20:06)
[2022-05-18] MEDS: OXYCODONE IR 10 MG TABLET PO ×2 (08:44→19:32)
[2022-05-18] MEDS: atenoloL 50 MG TABLET 100 MG PO (08:44)
[2022-05-18] MEDS: polyethylene glycoL 3350 17 GM POWD.PACK PO ×2 (08:45→16:21)
[2022-05-18] MEDS: SODIUM CHLORIDE 0.9% FLUSH 10 ML IV ×2 (08:45→20:07)
[2022-05-18] MEDS: DOCUSATE 100 MG CAPSULE PO ×4 (08:46→20:06)
[2022-05-18] MEDS: MELOXICAM 7.5 MG TABLET PO (08:56)
[2022-05-18] MEDS: PRAMIPEXOLE 1 MG TABLET PO ×2 (08:56→20:06)
[2022-05-18] MEDS: FLUTICASONE 120 SPRAY/16 GM SPRAY.SUSP NASAL (08:59)
--- NOTE | 2022-05-18 09:40 | PT.IPTN ---
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) Surgery Performed Operation Date: 05/16/22 13:45 Actual Procedures p Total Hip Arthroplasty(Right) - Marina Tinoco MD Physical Therapy Treatment Note M2 PT-IP Current Condition Start: 05/17/22 12:34 Freq: NEEDED Status: Active Protocol: Document 05/17/22 09:37 AB (Rec: 05/17/22 12:49 AB [email or web address]) Physical Therapy Current Condition Current Condition Evaluation Date 05/17/22 Treatment Diagnosis s/p R CRYSTAL posterior approach; difficulty in walking Onset Date 05/16/22 M3 PT-IP Subjective Start: 05/17/22 12:34 Freq: NEEDED Status: Active Protocol: Document 05/18/22 09:44 AB (Rec: 05/18/22 12:17 AB [email or web address]) Subjective Physical Therapy Visit Type Type Treatment Note Visit Start Time 09:44 Visit Stop Time 10:23 Total Visit Minutes 43 Number of REGISTERED REPRESENTATIVE Visits 0 Physical Therapy Visit Comments Patient Comments pt is agreeable to do PT Therapy Pain Assessment Pain When Pain Assessed At Rest Pain Present Pain Present Pain Reported Location r hip pain Scale Used pain scale not stated but more pain than yesterday's Pain Management Techniques Distraction,Modification of Treatment,Re-positioning, Timing of Activity with Medications M4 PT-IP Mobility and Gait Start: 05/17/22 12:34 Freq: NEEDED Status: Active Protocol: Document 05/18/22 09:44 AB (Rec: 05/18/22 12:17 AB [email or web address]) PT-Bed Mobility Assessment Supine to Sit Supine to Sit Maximum Assistance Sit to Supine Sit to Supine Minimal Assistance,Moderate Assistance,1 Person Assistance PT-Transfer Assessment Sit to and From Stand Sit to and from Stand Moderate Assistance,1 Person Assistance,Use of Upper Extremities Equipment Transfer Assistive Device Gait Belt,Front Wheeled Walker Orthotic/Prosthetic Devices or Brace: No Transfers Transfer Destination Bed Transfer Technique ambulated using FWW Transfer Ability Level of Assist Minimal Assistance,Moderate Assistance,1 Person Assistance ,Use of Upper Extremities Comments Mobility Comments pt's son in room. caregiver training conducted. son was able to put safety belt on pt. assisted pt with sit to stand mod A and ambulated pt to the bed using FWW min to mod A using FWW ~12 ft. pt complaining for increase pain today and stated that she has been getting up to use bedside commode today and hip has more pain. pt sat on EOB and demonstrated sit<>supine x 2 sets with son assisting. pt requested to must stay in bed. pt and son without further concerns. positioned pt on the bed. call light and table placed within reach. Gait Assessment Gait Gait Assistance Required: Minimum Assistance,Moderate Assistance Distance (Feet) 12 Able to Maintain Weight Bearing Status Yes During Gait Assistive Devices Assistive Device Gait Belt,Front Wheeled Walker Orthotic/Prosthetic Devices or Brace: No Gait Deviations General Gait Pattern Decreased Stride Length, Decreased Feet Clearance,Step- to Gait Factors Limiting Gait Function Factors Limiting Gait Function Decreased Activity Tolerance, Decreased Strength,Difficulty Following Directions,Limited Range of Motion,Pain,Poor Balance,Poor Safety Awareness M5 PT-IP Objective Assessments Start: 05/17/22 12:34 Freq: NEEDED Status: Active Protocol: Document 05/17/22 09:37 AB (Rec: 05/17/22 12:49 AB [email or web address]) Orientation Orientation/Cognition Level of Alertness Alert Orientation Name,Place,Situation Language Function Ability No Deficits Noted Safety Awareness Decreased Safety Awareness Memory Description Short Term Impaired,Nut Feeder Impaired Gross Range of Motion Lower Extremity ROM Assessment Within Functional Limits Strength Lower Extremity Strength Assessment Right Impaired Hip 3+/5 Knee 4-/5 Coordination Assessment Gross Coordination Gross Coordination WNL Sensation Assessment Sensation Gross Sensation WNL Muscle Tone Muscle Tone WNL Yes M6 PT-IP Treatment Start: 05/17/22 12:34 Freq: NEEDED Status: Active Protocol: Document 05/18/22 09:44 AB (Rec: 05/18/22 12:17 AB [email or web address]) Physical Therapy Treatment Education Education Provided Precautions,Weight Bearing Status,Safety M7 PT-IP Assessment and Plan Start: 05/17/22 12:34 Freq: NEEDED Status: Active Protocol: Document 05/18/22 09:44 AB (Rec: 05/18/22 12:17 AB [email or web address]) PT Summary Assessment and Plan Potential Rehabilitation Potential Fair Summary Impairments Pain,ROM,Strength,Balance, Coordination,Sensation,Tone, Cognition,Bed Mobility, Transfers,Gait,Activity Tolerance Progress Towards Goals Slow Progress due to Pain,Slow Progress due to Activity Tolerance,Slow Progress - Other Assessment Summary pt continues to require min to max A with mobility but son was able to assist pt. pt plans to go home and son will stay and assist pt as long as needed. pt will also benefit from HHPT. Goals Bed Mobility Goal Standby Assistance Transfer Goal Standby Assistance,Front Wheeled Walker Gait Goal Standby Assistance,Front Wheel Walker Gait Distance 200 Days to Meet Goals 10 Frequency of Treatment Frequency Of Treatment Twice a Day Treatment Plan Physical Therapy Treatment Plan Bed Mobility Training,Transfer Training,Gait Training, Therapeutic Exercise,Balance Retraining,Post Op Education, Discharge Planning,Hot or Cold Pack,Neuromuscular Re-ed, Coordination Retraining,Manual Therapy Precautions Posterior Hip Precautions No Hip Flexion > 90 degrees,No Hip Internal Rotation,No Hip Adduction Weight Bearing Status Weight Bearing Status Weight Bear as Tolerated Allowed Weight Bearing Amount (enter % RLE WBAT or #) (%) Recommendations To Nursing Amount of Assist Needed 1 Person Assist Discharge Recommendations PT Discharge Recommendations Home with 04/06 Assist Available,Home Health Transportation Needs at Discharge Private Vehicle,Wheelchair/ Cabulance
--- NOTE | 2022-05-18 12:47 | PC.NURSE ---
Addendum entered by Marilyn Blackwell R.N. 05/18/22 18:26: Water enema administered as ordered by Dr. Tinoco. Patient tolerated enema, awaiting result. Addendum entered by Marilyn Blackwell R.N. 05/18/22 16:57: Notified Mimi regarding, no BM post am efforts. Abdo US results available. New orders obtained. Patient continue tolerating diet, no N/V, no abdomen distention, continue large amount of FLATUS. Dulcolax CO, second dose of Miralax, and Milk of Magnesia PO administered. Awaiting results. Original Note: Day shift note: Patient up OOB this am to chair for breakfast, cleared by PT. Colace PO, Miralax, and Prune juice given this morning. NO BM thus far, however large amounts of FLATUS. Abdomen soft, active BS, tolerating diet, no N/V, non distended. Awaiting for Abdo US at 1500. Son at bedside this am providing supportive care.
--- NOTE | 2022-05-18 14:05 | PT.IPTN ---
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) Surgery Performed Operation Date: 05/16/22 13:45 Actual Procedures p Total Hip Arthroplasty(Right) - Marina Tinoco MD Physical Therapy Treatment Note M2 PT-IP Current Condition Start: 05/17/22 12:34 Freq: NEEDED Status: Active Protocol: Document 05/17/22 09:37 AB (Rec: 05/17/22 12:49 AB [id number]) Physical Therapy Current Condition Current Condition Evaluation Date 05/17/22 Treatment Diagnosis s/p R CRYSTAL posterior approach; difficulty in walking Onset Date 05/16/22 M3 PT-IP Subjective Start: 05/17/22 12:34 Freq: NEEDED Status: Active Protocol: Document 05/18/22 13:41 KS (Rec: 05/18/22 14:34 KS [id number]) Subjective Physical Therapy Visit Type Type Treatment Note Visit Start Time 13:41 Visit Stop Time 14:05 Total Visit Minutes 24 Number of SHAREPOINT DESIGNER DEVELOPER Visits 1 Physical Therapy Visit Comments Patient Comments pt is agreeable to do PT Therapy Pain Assessment Pain When Pain Assessed After Treatment Pain Present Pain Present Pain Reported Location r hip pain Intensity 8 Scale Used Numeric (0 - 10) Pain Management Techniques Apply Cold,Distraction, Elevation,Modification of Treatment,Re-positioning M4 PT-IP Mobility and Gait Start: 05/17/22 12:34 Freq: NEEDED Status: Active Protocol: Document 05/18/22 13:41 KS (Rec: 05/18/22 14:34 KS [id number]) PT-Bed Mobility Assessment Supine to Sit Supine to Sit Moderate Assistance,1 Person Assistance,Head of Bed Elevated,Bedrails Sit to Supine Sit to Supine Minimal Assistance,Moderate Assistance,1 Person Assistance Scooting Scooting to Edge of Bed Contact Guard Assistance PT-Transfer Assessment Sit to and From Stand Sit to and from Stand Minimal Assistance,1 Person Assistance,Use of Upper Extremities Equipment Transfer Assistive Device Gait Belt,Front Wheeled Walker Orthotic/Prosthetic Devices or Brace: No Transfers Transfer Destination Bed Transfer Technique ambulated using FWW Transfer Ability Level of Assist Minimal Assistance,Moderate Assistance,1 Person Assistance ,Use of Upper Extremities Comments Mobility Comments Pt in bed upon arrival and requesting to use toilet. Mod A and cues for sup<>sit and Min A w/ cues for sit<>Stand w / FWW. Pt groaning in pain w/ mobility. Pt ambulated ~15 ft to toilet w/ FWW CGA w/ decreased stride and foot clearance and very slow pace. Min A and cues for slow descent when sitting. After voiding, pt required Min A and cues for hand placement for sit<>stand and ambulated 15 ft back to bed. Pt refused further ambulation as well as exercises due to 8/10 pain and fatigue. Min/Mod A for sit<> sup. Pt left in bed w/ all needs in reach, alarm on, and ice applied to hip. Gait Assessment Gait Gait Assistance Required: Contact Guard Assist,1 Person Assist Distance (Feet) 15 Able to Maintain Weight Bearing Status Yes During Gait Assistive Devices Assistive Device Gait Belt,Front Wheeled Walker Orthotic/Prosthetic Devices or Brace: No Gait Deviations General Gait Pattern Decreased Stride Length, Decreased Feet Clearance,Step- to Gait Factors Limiting Gait Function Factors Limiting Gait Function Decreased Activity Tolerance, Decreased Strength,Difficulty Following Directions,Limited Range of Motion,Pain,Poor Balance,Poor Safety Awareness Comments Gait Comments Please refer to mobility section for details. M5 PT-IP Objective Assessments Start: 05/17/22 12:34 Freq: NEEDED Status: Active Protocol: Document 05/17/22 09:37 AB (Rec: 05/17/22 12:49 AB [id number]) Orientation Orientation/Cognition Level of Alertness Alert Orientation Name,Place,Situation Language Function Ability No Deficits Noted Safety Awareness Decreased Safety Awareness Memory Description Short Term Impaired,Dimensional Integration Engineer Impaired Gross Range of Motion Lower Extremity ROM Assessment Within Functional Limits Strength Lower Extremity Strength Assessment Right Impaired Hip 3+/5 Knee 4-/5 Coordination Assessment Gross Coordination Gross Coordination WNL Sensation Assessment Sensation Gross Sensation WNL Muscle Tone Muscle Tone WNL Yes M6 PT-IP Treatment Start: 05/17/22 12:34 Freq: NEEDED Status: Active Protocol: Document 05/18/22 13:41 KS (Rec: 05/18/22 14:34 KS [id number]) Physical Therapy Treatment Education Education Provided Precautions,Weight Bearing Status,Safety M7 PT-IP Assessment and Plan Start: 05/17/22 12:34 Freq: NEEDED Status: Active Protocol: Document 05/18/22 13:41 KS (Rec: 05/18/22 14:34 KS [id number]) PT Summary Assessment and Plan Potential Rehabilitation Potential Fair Summary Impairments Pain,ROM,Strength,Balance, Coordination,Sensation,Tone, Cognition,Bed Mobility, Transfers,Gait,Activity Tolerance Progress Towards Goals Slow Progress due to Pain,Slow Progress due to Activity Tolerance,Slow Progress - Other Assessment Summary Pt Mod A for most bed mobility and Min A for sit<>stand w/ FWW. Only able to tolerate ambulation to toilet and back and c/o high level of pain and fatigue. Poor safety awareness and low activity tolerance, requiring cues for all tasks to adhere to precautions. Pt plans to go home w/ son to assist and will need HHPT. Goals Bed Mobility Goal Standby Assistance Transfer Goal Standby Assistance,Front Wheeled Walker Gait Goal Standby Assistance,Front Wheel Walker Gait Distance 200 Days to Meet Goals 10 Frequency of Treatment Frequency Of Treatment Twice a Day Treatment Plan Physical Therapy Treatment Plan Bed Mobility Training,Transfer Training,Gait Training, Therapeutic Exercise,Balance Retraining,Post Op Education, Discharge Planning,Hot or Cold Pack,Neuromuscular Re-ed, Coordination Retraining,Manual Therapy Precautions Posterior Hip Precautions No Hip Flexion > 90 degrees,No Hip Internal Rotation,No Hip Adduction Weight Bearing Status Weight Bearing Status Weight Bear as Tolerated Allowed Weight Bearing Amount (enter % RLE WBAT or #) (%) Recommendations To Nursing Amount of Assist Needed 1 Person Assist Discharge Recommendations PT Discharge Recommendations Home with 04/06 Assist Available,Home Health Transportation Needs at Discharge Private Vehicle,Wheelchair/ Cabulance
--- NOTE | 2022-05-18 15:00 | DI.US.S_ITS ---
PROCEDURE: US ABDOMEN LIMITED INDICATIONS: right upper and lower quadrent pain, no BM x8 days TECHNIQUE: Real-time scanning was performed of the abdominal and retroperitoneal organs, with image documentation. COMPARISON: None. FINDINGS: Liver: The liver measures 18.6 cm in length and demonstrates increased hepatic echogenicity. The main portal vein and the hepatic veins are patent. Gallbladder: The gallbladder wall measures 2.3 mm in diameter. No stones, sludge, pericholecystic fluid, or sonographic Gibbs sign. Biliary ducts: Intrahepatic bile ducts are non-dilated. Extrahepatic bile duct caliber measures 8 mm. Normal is 6-7 mm or less in diameter, or 10 mm or less post-cholecystectomy. Pancreas: Visualized portions of the pancreas are sonographically normal. IMPRESSION: 1. Increased hepatic echogenicity noted likely related to fatty infiltration of the liver but other sources of hepatocellular disease cannot be excluded. 2. No cholelithiasis or findings to suggest choledocholithiasis or acute cholecystitis. Dictated by: Mee Michaud M.D. on 05/18/2022 at 15:41 Approved by: Mee Michaud M.D. on 05/18/2022 at 15:43
[2022-05-18] MEDS: MAGNESIUM HYDROXIDE 30 ML UDC PO (16:21)
[2022-05-18] MEDS: BISACODYL 10 MG SUPP PR (16:21)
--- NOTE | 2022-05-18 18:07 | P.PN_ITS ---
Subjective Subjective Date Patient Seen: 05/18/22 Time Patient Seen: 17:00 Interval history: She is doing reasonably well with physical therapy. She continues to note some slight distended sensation. She notes that she has had abnormal bowel movements for about 4 months because of narcotic use. She denies a history of nausea. She is not vomiting. She has been passing gas. She still has some intermittent spasms in her right hip but her pain is adequately controlled. She did well with physical therapy today and was ambulatory. Exam Vital Signs (past 8 hours): - 05/18/22 11:00 05/18/22 15:00 05/18/22 15:09 Temperature 98.9 F 99.1 F Pulse Rate 73 72 Respiratory Rate 18 18 Blood Pressure 121/45 L 117/48 L Pulse Oximetry 93 94 92 Oxygen Delivery Method Room Air Oxygen Flow Rate 0 0 Fraction of Inspired Oxygen 32 Oxygen Delivery Method Room Air Oxygen Flow Rate 0 Narrative Exam Narrative: She is resting comfortably in bed her abdomen is slightly distended bowel sounds are positive she has minimal pain with gentle range of motion in her hip her dressings dry her calfs are soft bilaterally Objective Labs Result Diagrams: 05/17/22 06:30 [facility] Medical History Anesthesia Asthma Dry skin DVT (deep venous thrombosis) (~2017) Easy bruisability Fatty liver Fibromyalgia GERD (gastroesophageal reflux disease) Graves' disease HLD (hyperlipidemia) HTN (hypertension) Idiopathic aseptic necrosis of right femur DAE (obstructive sleep apnea) Osteoarthritis Pre-diabetes RLS (restless legs syndrome) Self-catheterizes urinary bladder Small bowel obstruction (~2017) Surgical History History of arthroplasty of left knee History of arthroplasty of left shoulder History of arthroplasty of right knee History of arthroplasty of right shoulder History of hysterectomy History of lumbar fusion Hx of bilateral cataract extraction Hx of bladder repair surgery Hx of laminectomy Hx of partial thyroidectomy Hx of sinus surgery Social History household members: none Smoking Status: Never smoker alcohol intake: current Assessment & Plan Post-op Postoperative Procedures: Procedures Operation Date: 05/16/22 13:45 Actual Procedure Side Surgeon p Total Hip Arthroplasty Right Marina Tinoco MD Postoperative day: 2 Postoperative status narrative: She is doing reasonably well postoperatively she has had some chronic problems with constipation. We have been working on in a fairly aggressive bowel program here. She had an ultrasound today which did not show significant abnormalities. I recommended that we do a tap water enema to see if she can pass a some additional stool. She has done well with therapy and I think it is reasonable to discharge her to home as long she is comfortable and has support. Postoperative plan: discharge Postoperative plan narrative: She is doing reasonably well and I have recommended that we discharge her to home but we did decide to do a tap water enema prior to her discharge. Time Spent With Patient Time with patient: 15-24 minutes
[2022-05-18] MEDS: FAMOTIDINE 20 MG TABLET PO (20:06)
[2022-05-19 00:30] VITALS: BP 136/51; PULSE 73; RESP 18; TEMP 36.9; O2SAT 92
[2022-05-19] MEDS: OXYCODONE IR 10 MG TABLET PO ×2 (00:35→05:31)
[2022-05-19] MEDS: LEVOTHYROXINE 100 MCG TABLET PO (05:31)
[2022-05-19 06:34] VITALS: BP 136/45; PULSE 70; RESP 17; TEMP 37.4; O2SAT 94
[2022-05-19 08:50] VITALS: BP 94/72; PULSE 84; RESP 16; TEMP 35.9; O2SAT 92
[2022-05-19 08:55] VITALS: BP 139/60
--- NOTE | 2022-05-19 10:05 | P.DS_ITS ---
History of Present Illness History of Present Illness Date Patient Seen: 05/19/22 Time Patient Seen: 10:05 Chief complaint: OPB Narrative: Operative Date/Time/Diagnoses Date of procedure: 05/16/22 Time of procedure: 15:00 Pre-op diagnosis: Right hip AVN Post-op diagnosis: same Procedure & Clinicians Procedure: Right total hip arthroplasty posterior approach Same procedure as scheduled: Yes Indications: The patient has had progressively worsening right hip pain with radiographic changes consistent with arthritis. Non-operative management has failed and the patient has requested total hip replacement. The risks, benefits and alternatives to surgery were discussed with the patient prior to proceeding. Risks discussed included, but were not limited to, failure to relieve pain, leg length discrepancy, dislocation, stiffness, infection, nerve damage, deep venous thrombosis, pulmonary embolism, stroke, coma, heart attack, permanent paralysis and , as well as the potential need for eventual revision of the prosthe tic. Surgeon: Marina Tinoco Child Care Provider: Robbie Hammonds Anesthesia Type: General Operative Notes Findings: Severe right hip avascular necrosis with severe destruction of the femoral head, soft bone Closure Type: primary Specimen(s): none sent Prosthetic devices, grafts, tissues, transplants, or devices: Tinoco and nephew size 10 synergy, 48 mm R3 cup, 32 x 48 neutral poly liner, 32 by -3 cobalt head,one 6.5 mm screw Estimated Blood Loss (mL): 250 Blood products transfused: none Discharge Providers Provider Discharge Date: 05/19/22 Consults: 05/16/22 10:08 Consult to Anesthesiology Routine Comment: Consulting Provider: Anesthesiologist Reason for consultation: Regional block for post operative pain control 05/16/22 12:40 Consult to Respiratory Therapy Evaluate & Treat Comment: Physician Instructions: Evaluate and treat 05/16/22 17:52 Consult to Discharge Planning Routine Comment: Consult to Physical Therapy Evaluate & Treat Comment: Physician Instructions: post op CRYSTAL protocol Consult to Respiratory Therapy Evaluate & Treat Comment: Physician Instructions: Evaluate and treat 05/17/22 13:12 Consult to Home Health Routine Comment: Reason For Exam: Home Health RN, P.T, O.T, bath aide Discharge provider: Carly Connolly PA-C Summary Hospital Course Discharge Diagnosis: s/p R CRYSTAL Chronic constipation Hospital Course: Ms Wu's hospital course was remarkable for constipation and RLQ pain. Abdominal ultrasound was negative for abnormalities. On POD# 3 she stated she had still not moved her bowels, but this was normal for her and she wanted to go home. She has her son at home for help and will also be receiving home health care and PT. Exam Vital Signs (past 8 hours): - 07/07/03 06:34 07/07/03 08:50 05/19/22 08:55 Temperature 99.3 F 96.6 F L Pulse Rate 70 84 Respiratory Rate 17 16 Blood Pressure 136/45 L 94/72 139/60 Pulse Oximetry 94 92 Oxygen Flow Rate 0 0 Fraction of Inspired Oxygen 32 Oxygen Delivery Method Room Air Oxygen Flow Rate 0 Narrative Exam Narrative: 5/5 strength in hip flexors, quadriceps, hamstrings, DF, PF, EHL bilaterally. Sensation to light touch intact in BLE. Calves soft, compressible, nontender. VICKEY dressing operating, scant bloody drainage. Objective Labs Result Diagrams: 05/17/22 06:30 [facility] Medical History Anesthesia Asthma Dry skin DVT (deep venous thrombosis) (~2017) Easy bruisability Fatty liver Fibromyalgia GERD (gastroesophageal reflux disease) Graves' disease HLD (hyperlipidemia) HTN (hypertension) Idiopathic aseptic necrosis of right femur DAE (obstructive sleep apnea) Osteoarthritis Pre-diabetes RLS (restless legs syndrome) Self-catheterizes urinary bladder Small bowel obstruction (~2017) Surgical History History of arthroplasty of left knee History of arthroplasty of left shoulder History of arthroplasty of right knee History of arthroplasty of right shoulder History of hysterectomy History of lumbar fusion Hx of bilateral cataract extraction Hx of bladder repair surgery Hx of laminectomy Hx of partial thyroidectomy Hx of sinus surgery Social History household members: none Smoking Status: Never smoker alcohol intake: current Discharge Assessment & Plan Assessment and Plan Assessment: -stable status post right total hip arthroplasty, posterior approach -history of DVT -chronic constipation, no bowel movement x1 week Patient self catheterizes at home Plan of Treatment: -mobilize with PT. weight-bearing as tolerated with front wheel walker. Maintain posterior hip precautions x6 weeks -DVT prophylaxis: Stop aspirin b.i.d. and changed to Eliquis 5 mg b.i.d. due it to her history of DVT status post total knee -keep Booker catheter in until discharge, then the patient will self catheterize at home -continue multimodal pain management. Added Vistaril for muscle spasm/pain. We will discontinue ibuprofen and add meloxicam 7.5 mg with Pepcid AC while using Eliquis. -chronic constipation: increased MiraLax to t.i.d., will add ducolax as well. Patient will need to have a BM before d/c, since it has been a week since last BM. Also encouraged rectal suppository -dc home with home health -d/c home if she is cleared by physical therapy and has a bowel movement before d/c Discharge Plan Discharge Plan Patient Disposition: Home Discharge orders & Medications Discharge Orders: Discharge (Order); Ordered 05/19/22 Ordered By: Carly Connolly Prescriptions: New Eliquis 5 mg Tablet 5 mg PO BID 42 Days Qty: 84 0RF Rx Instructions: Prevent blood clots famotidine [Pepcid AC] 20 mg Tablet 20 mg PO BEDTIME PRN (Reason: Protect stomach while using meloxicam) Qty: 14 0RF docusate sodium 100 mg Capsule 100 mg PO BID PRN (Reason: Constipation from narcotic pain med) Qty: 60 0RF hydroxyzine pamoate 25 mg Capsule 25 mg PO Q4HR PRN (Reason: muscle spasms/pain/nausea) Qty: 60 0RF meloxicam 7.5 mg Tablet 7.5 mg PO .With breakfast PRN (Reason: Pain/inflammation) 14 Days Qty: 14 0RF oxycodone 5 mg Tablet See Rx Instructions .ROUTE .COMPLEX PRN (Reason: Pain, Moderate (4-6)) Qty: 42 0RF Rx Instructions: Take 1-2 tablets by mouth every 4 hours as needed for moderate to severe postop pain polyethylene glycol 3350 17 gram Powder In Packet 17 g PO TID PRN (Reason: Constipation) Qty: 30 0RF Continued pramipexole 1 mg Tablet 1 mg PO BID pravastatin 40 mg Tablet 40 mg PO DAILY atenolol 100 mg Tablet 100 mg PO QAM levothyroxine 100 mcg Tablet 100 mcg PO DAILY pantoprazole 40 mg Tablet,Delayed Release (Dr/Ec) 40 mg PO DAILY docusate sodium 100 mg Capsule 100 mg PO BID albuterol sulfate 90 mcg/actuation Hfa Aerosol Inhaler 2 puff INHALATION Q4-6H PRN (Reason: Shortness Of Breath) fluticasone propionate 50 mcg/actuation [place],Suspension 2 spray INTRANASAL DAILY Rx Instructions: administer into each nostril buspirone 15 mg Tablet 15 mg PO BID Myrbetriq 50 mg Tablet Extended Release 24 Hr 50 mg PO DAILY Label Comments: doesn't take consistently due to cost of drug, and pt doesn't think it works chlorthalidone 15 mg Tablet 15 mg PO BID Follow up/Referrals: Marina Tinoco MD [Physician] - As previously scheduled (Follow up w/ Robbie Hammonds PA-C, on 05/30/2022 @ 1:20 pm at [facility] office in [place].) Diet/Activity/Treatments Diet: Diet as Tolerated Other treatments: Dressing/Wound care: -Keep Vickey dressing in place until postoperative follow-up office visit. The Vickey battery/pump should last for 7 days. Once that stops, please cut off hose at base of dressing and cover with a bandaid/part of a dressing from Vickey package. Monitor can be thrown away and recycle the batteries. Leave the remaining dressing in place. -Okay to shower. Keep wound out of direct water stream. No soaking or submerging until all the scabs fall off (approximately 6 weeks). -No lotions, ointments, or scar creams directly to the incision until the wound is healed (4-6 weeks), -Please call the office if dressing becomes wet, soiled, or saturated. Activities: -Maintain posterior hip precautions x6 weeks. -Weight-bearing as tolerated. Use front wheeled walker, and progress to cane when safe. -Continue with home exercises as directed by your physical therapist. -Elevate ?toes above the nose if you have significant swelling in your lower leg. (A wedge pillow is easiest.) -Ice your incision as needed for pain/inflammation/swelling. Protect your skin with a folded pillowcase. Follow-up: -Follow-up with your surgeon or PA in the office in 10-14 days after surgery. -Follow-up with your surgeon 6 weeks postoperatively. Call the office if you have chest pain, shortness of breath, significant swelling that will not resolve with elevating, fever over 101?, significantly worsening pain, or are concerned you might need to go to the Emergency Room. [facility]: [phone] Skin/Wound/Dressing Care Report to your healthcare provider any signs of infection, such as:: chills, fever, night sweats, unusual drainage and unusual redness Visit Report/Discharge Packet Instructions: DI for Hip Replacement Stand Alone Forms: Surgery Discharge Discharge Data Attending Provider: Marina Tinoco
[2022-05-19] MEDS: PRAVASTATIN 20 MG TABLET 40 MG PO (10:30)
[2022-05-19] MEDS: DOCUSATE 100 MG CAPSULE PO (10:30)
[2022-05-19] MEDS: BUSPIRONE 5 MG TABLET 15 MG PO (10:30)
[2022-05-19] MEDS: PRAMIPEXOLE 1 MG TABLET PO (10:31)
[2022-05-19] MEDS: APIXABAN 5 MG TABLET PO (10:31)
[2022-05-19] MEDS: PANTOPRAZOLE DR 40 MG TABLET PO (10:31)
[2022-05-19] MEDS: FLUTICASONE 120 SPRAY/16 GM SPRAY.SUSP NASAL (10:32)
[2022-05-19] MEDS: SODIUM CHLORIDE 0.9% FLUSH 10 ML IV (10:33)
[2022-05-19] MEDS: MELOXICAM 7.5 MG TABLET PO (10:35)
--- NOTE | 2022-05-19 11:43 | PT-IP ANOTE ---
pt is getting ready to d/c and does not want PT. stated that if she does PT before going home, she will be sore and tired. son in room and stated that he got the house ready for pt and no further concerns.
== END 2022-05-19 11:50 | disposition home or self-care (01) ==
LOC: OR 11:36 → AC 11:38
PROVIDERS: Referring Provider Orthopaedic Surgery; Visit Provider Orthopaedic Surgery
PROC: 0SR90JZ Replacement of Right Hip Joint with Synthetic Substitute, Open Approach (ICD-10-PCS; CPT 27130; principal; 2022-05-16 13:45)
DX: M87.051 Idiopathic aseptic necrosis of right femur (principal); M16.11 Unilateral primary osteoarthritis, right hip; Z86.718 Personal history of other venous thrombosis and embolism; Z20.822 Contact with and (suspected) exposure to COVID-19; J45.909 Unspecified asthma, uncomplicated; I10 Essential (primary) hypertension; E78.5 Hyperlipidemia, unspecified; G47.33 Obstructive sleep apnea (adult) (pediatric)
CPT/HCPCS: 27130; 36415; 72170; 73502; 76705; 85014; 85018; 87635; 94760; 97116; 97162; 97530; C1776; C9803; A9270; C9290; J0171; J1100; J2250; J2405; J2704; J3010